=== PATIENT | female | born 1970 | race Caucasian/White ===

== ENCOUNTER 2017-08-30 11:15 | Emergency (ER) | payer OTHER ==
[~2017-08-30] VITALS: Ht 167.6 cm; Wt 57.0 kg
[~2017-08-30 11:15] MED LIST: AMBI10TA PO; VICOTAB4 PO; Z.0.BCPILL PO
[2017-08-30 11:17] VITALS: BP 128/89; PULSE 93; RESP 18; TEMP 97.5; O2SAT 100
--- NOTE | 2017-08-30 11:30 | PD ---
HPI Chief Complaint: Abdominal Pain Time Seen by Provider: 11:23 Travel History International Travel<30 days: No Contact w/Intl Traveler<30days: No Traveled to known affect area: No History of Present Illness HPI Patient comes in complaining of gradual onset of lower abdominal pain, crampy, about 3-5 out of 10, nonradiating. Onset was approximately 4 days ago on Saturday , there was some an associated nausea but no acute vomiting or diarrhea on that day. As time went on the pain continued to get worse presently it is 7 out of 10, and as of yesterday associated with loose stools. Patient also stated that she has had a fever of 101-102 throughout the week. Last meal today was morning toast, and has not had anything else to eat or drink. Patient presented to an urgent care, who referred the patient to the emergency department as she was too complicated to treat at the urgent care . No known drug allergy Past medical history significant for breast augmentation chronic neck pain PFSH Past Medical History Arthritis: Yes (NECK) Anxiety: Yes Cancer: No Cardiovascular Problems: No Diminished Hearing: No Endocrine: No Genitourinary: No Immune Disorder: No Musculoskeletal: Yes (CHRONIC NECK AND BACK PAIN) Neurologic: No Psychiatric: No Reproductive: No Respiratory: No Immunizations Current: No ?: Unknown Past Surgical History Section: Yes Gynecologic Surgery: Yes (BREAST AUGMENTATION) Other Surgery: Yes (BREAST AUGMENTATION) Social History Alcohol Use: Yes ("SOCIALLY") Tobacco Use: No Substance Use: No Allergies-Medications (Allergen,Severity, Reaction): Coded Allergies: No Known Allergies (Verified Adverse Reaction, Unknown, 08/30/17) Reported Meds & Prescriptions Reported Meds & Active Scripts Active Reported Estradiol 1 Mg Tab 1 Mg PO DAILY Provera (Medroxyprogesterone Acetate) 2.5 Mg Tab 2.5 Mg PO DAILY Start day 16 Review of Systems General / Constitutional: No: Fever Eyes: No: Visual changes HENT: No: Headaches Cardiovascular: No: Chest Pain or Discomfort Respiratory: No: Shortness of Breath Gastrointestinal: Positive: Nausea, Abdominal Pain Genitourinary: No: Dysuria Musculoskeletal: No: Pain Skin: No Rash Neurologic: No: Weakness Psychiatric: No: Depression Endocrine: No: Polydipsia Hematologic/Lymphatic: No: Easy Bruising Physical Exam Narrative GENERAL: SKIN: Warm and dry. HEAD: Atraumatic. Normocephalic. EYES: Pupils equal and round. No scleral icterus. No injection or drainage. ENT: No nasal bleeding or discharge. Mucous membranes pink and moist. NECK: Trachea midline. No JVD. CARDIOVASCULAR: Regular rate and rhythm. RESPIRATORY: No accessory muscle use. Clear to auscultation. Breath sounds equal bilaterally. GASTROINTESTINAL: Abdomen is tender to percussion on the lower quadrants including right ,suprapubic and left lower quadrant. MUSCULOSKELETAL: Extremities without clubbing, cyanosis, or edema. No obvious deformities. NEUROLOGICAL: Awake and alert. No obvious cranial nerve deficits. Motor grossly within normal limits. Five out of 5 muscle strength in the arms and legs. Normal speech. PSYCHIATRIC: Appropriate mood and affect; insight and judgment normal. Data Data Last Documented VS Vital Signs Date Time Temp Pulse Resp B/P (MAP) Pulse Ox O2 Delivery O2 Flow Rate FiO2 08/30/17 12:34 20 08/30/17 12:31 98 08/30/17 11:17 97.5 93 128/89 (102) Orders Orders Complete Blood Count With Diff (08/30/17 11:39) Comprehensive Metabolic Panel (08/30/17 11:39) Lipase (08/30/17 11:39) Prothrombin Time / Inr (Pt) (08/30/17 11:39) Act Partial Throm Time (Ptt) (08/30/17 11:39) Urinalysis - C+S If Indicated (08/30/17 11:39) Ct Abd/Pel W Iv Contrast(Rout) (08/30/17 11:39) Iv Access Insert/Monitor (08/30/17 11:39) Ecg Monitoring (08/30/17 11:39) Oximetry (08/30/17 11:39) NPO (08/30/17 11:39) Morphine Inj (Morphine Inj) (08/30/17 11:45) Ondansetron Inj (Zofran Inj) (08/30/17 11:45) Sodium Chlor 0.9% 1000 Ml Inj (Ns 1000 M (08/30/17 11:39) Electrocardiogram (08/30/17 11:39) Ed Urine Pregnancytest Poc (08/30/17 11:39) Oral Contrast - Adult (08/30/17 11:46) Urine Culture (08/30/17 11:45) Diatrizoate Liq ( Gastroromy Liq) (08/30/17 12:15) Levofloxacin 750 Mg Premix Inj (Levaquin (08/30/17 13:30) Iohexol 350 Inj (Omnipaque 350 Inj) (08/30/17 14:01) Labs Laboratory Tests Test 08/30/17 11:45 08/30/17 11:50 Urine Collection Type CLEAN CATCH Urine Color YELLOW Urine Turbidity CLEAR Urine pH 6.5 Urine Specific [place] LESS/EQUAL 1.005 Urine Protein NEG mg/dL Urine Glucose (UA) NEG mg/dL Urine Ketones NEG mg/dL Urine Occult Blood NEG Urine Nitrite NEG Urine Bilirubin NEG Urine Urobilinogen 0.2 MG/DL Urine Leukocyte Esterase SMALL Urine WBC 6-8 /hpf Urine Squamous Epithelial Cells 6-8 /hpf Urine Bacteria MOD /hpf Microscopic Urinalysis Comment CULTURE INDICATED Urine Collection Time 11:45 White Blood Count 3.6 TH/MM3 Red Blood Count 4.60 MIL/MM3 Hemoglobin 14.2 GM/DL Hematocrit 42.1 % Mean Corpuscular Volume 91.6 FL Mean Corpuscular Hemoglobin 30.9 PG Mean Corpuscular Hemoglobin Concent 33.7 % Red Cell Distribution Width 12.4 % Platelet Count 162 TH/MM3 Mean Platelet Volume 7.8 FL Neutrophils (%) (Auto) 47.6 % Lymphocytes (%) (Auto) 37.7 % Monocytes (%) (Auto) 12.2 % Eosinophils (%) (Auto) 1.9 % Basophils (%) (Auto) 0.6 % Neutrophils # (Auto) 1.8 TH/MM3 Lymphocytes # (Auto) 1.3 TH/MM3 Monocytes # (Auto) 0.4 TH/MM3 Eosinophils # (Auto) 0.1 TH/MM3 Basophils # (Auto) 0.0 TH/MM3 CBC Comment DIFF FINAL Differential Comment Prothrombin Time 9.6 SEC Prothromb Time International Ratio 0.9 RATIO Activated Partial Thromboplast Time 26.5 SEC Blood Urea Nitrogen 10 MG/DL Creatinine 0.85 MG/DL Random Glucose 84 MG/DL Total Protein 7.4 GM/DL Albumin 3.4 GM/DL Calcium Level 8.7 MG/DL Alkaline Phosphatase 63 U/L Aspartate Amino Transf (AST/SGOT) 22 U/L Alanine Aminotransferase (ALT/SGPT) 36 U/L Total Bilirubin 0.2 MG/DL Sodium Level 138 MEQ/L Potassium Level 3.7 MEQ/L Chloride Level 104 MEQ/L Carbon Dioxide Level 28.7 MEQ/L Anion Gap 5 MEQ/L Estimat Glomerular Filtration Rate 71 ML/MIN Lipase 158 U/L [facility] Medical Decision Making Medical Screen Exam Complete: Yes Emergency Medical Condition: Yes Medical Record Reviewed: Yes Interpretation(s) Pulse ox: Excellent Pleth wave, 98% on room air, which is within the normal limits of interpretation for pulse ox EKG shows a normal sinus rhythm, 82 bpm, normal intervals, motion artifact baseline, J-point elevation but no ST elevations MO pattern noted Differential Diagnosis related ectopic rupture versus unruptured and versus UTI versus pyelonephritis versus sigmoid diverticulitis versus appendicitis versus colitis versus diverticular abscess or diverticular perforation Narrative Course test is negative CBC shows no leukocytosis, no anemia, no left shift and normal platelet count Coagulation profile is within normal limits CMP shows normal electrolytes, normal kidney liver and pancreatic functions. UA shows the presence of bacteria as well as leukocyte esterase and WBCs consistent with a UTI. CT abdomen and pelvis with IV and p.o. contrast the patient was noted to have no CT evidence of acute appendicitis, small bilateral ovarian cyst measuring 2.6 cm on the left and 2 cm on the right, also mild scoliosis of the lumbar spine. Diagnosis Primary Impression: Ascending cystitis Patient Instructions: General Instructions, Urinary Tract Infection in Women ( DC) Scripts Ondansetron Odt (Zofran Odt) 4 Mg Tab 4 MG SL Q8HR Y for Nausea/Vomiting, #15 TAB 0 Refills Prov: Jony Harding MD 08/30/17 Nitrofurantoin Monohydrate Macrocrystals (Macrobid) 100 Mg Capsule 100 MG PO BID for Infection for 7 Days, #14 CAP 0 Refills Prov: Jony Harding MD 08/30/17 Tramadol (Ultram) 50 Mg Tab 50 MG PO Q8H Y for PAIN, #15 TAB 0 Refills Prov: Jony Harding MD 08/30/17 Disposition: 01 DISCHARGE HOME Condition: Stable Jony Harding MD Aug 30, 2017 11:30
[2017-08-30] MEDS ORDERED: SODIUM CHLOR 0.9% 1000 ML INJ 1,000 ML IV SCH (11:39)
[2017-08-30] MEDS ORDERED: MEDR2.5 PO (11:43)
[2017-08-30] MEDS ORDERED: ESTR1TAB PO (11:43)
[2017-08-30] MEDS ORDERED: MORPHINE SULFATE 4 MG/ML INJ IV PUSH ONE (11:45)
[2017-08-30] MEDS ORDERED: ONDANSETRON HCL 4 MG/2 ML VIAL IVP ONE (11:45)
[2017-08-30 12:00] LABS: AUTOMATED NEUTROPHIL # 1.8 TH/MM3 (1.8-7.7); BASOPHIL % 0.6 % (0.0-2.0); EOSINOPHIL # 0.1 TH/MM3 (0-0.4); EOSINOPHIL % 1.9 % (0.0-4.0); HEMATOCRIT 42.1 % (35.0-46.0); HEMOGLOBIN 14.2 GM/DL (11.6-15.3); LYMPH % 37.7 % (9.0-44.0); LYMPHOCYTE # 1.3 TH/MM3 (1.0-4.8); MEAN CELL VOLUME 91.6 FL (80.0-100.0); MEAN CORPUSCULAR HEMOGLOBIN 30.9 PG (27.0-34.0); MEAN CORPUSCULAR HGB CONC 33.7 % (32.0-36.0); MEAN PLATELET VOLUME 7.8 FL (7.0-11.0); MONO % 12.2 % (0.0-8.0); MONOCYTE # 0.4 TH/MM3 (0-0.9); NEUT % 47.6 % (16.0-70.0); PLATELET COUNT 162 TH/MM3 (150-450); RED CELL DISTRIBUTION WIDTH 12.4 % (11.6-17.2); WHITE BLOOD COUNT 3.6 TH/MM3 (4.0-11.0)
[2017-08-30 12:00] LABS: BILIRUBIN, URINE NEG (NEG); BLOOD, URINE NEG (NEG); GLUCOSE,URINE NEG (NEG); KETONE, URINE NEG (NEG); NITRITE,URINE NEG (NEG); PH, URINE 6.5 (5.0-8.5); URINE COLOR YELLOW (YELLW/STRAW); URINE LEUKOCYTE ESTERASE SMALL (NEG)
[2017-08-30 12:08] LABS: BACTERIA, URINE MOD /hpf
[2017-08-30 12:09] LABS: CHLORIDE 104 MEQ/L (98-107); SODIUM (NA) 138 MEQ/L (136-145)
[2017-08-30 12:12] LABS: CALCIUM 8.7 MG/DL (8.5-10.1)
[2017-08-30 12:13] LABS: ALBUMIN 3.4 GM/DL (3.4-5.0); BICARBONATE 28.7 MEQ/L (21.0-32.0); BLOOD UREA NITROGEN 10 MG/DL (7-18); GLUCOSE,RANDOM 84 MG/DL (74-106); INTERNATIONAL NORMALIZED RATIO 0.9 RATIO; PROTHROMBIN TIME - PATIENT 9.6 SEC (9.8-11.6)
[2017-08-30] MEDS ORDERED: DIATRIZOATE MEGLUM/DIATRIZOATE SOD 9 ML CUP ONE (12:15)
[2017-08-30 12:16] LABS: ALT (GPT) 36 U/L (10-53); AST (GOT) 22 U/L (15-37); CREATININE 0.85 MG/DL (0.50-1.00); GLOMERULAR FILTRATION RATE 71 ML/MIN (>89)
[2017-08-30 12:18] LABS: TOTAL BILIRUBIN ADULT 0.2 MG/DL (0.2-1.0); TOTAL PROTEIN 7.4 GM/DL (6.4-8.2)
[2017-08-30 12:19] LABS: ALKALINE PHOSPHATASE 63 U/L (45-117)
[2017-08-30 12:31] VITALS: O2SAT 98
[2017-08-30 13:00] VITALS: PULSE 88; RESP 18; O2SAT 98
[2017-08-30] MEDS ORDERED: LEVOFLOXACIN 750 MG PREMIX INJ 150 ML IV ONE (13:30)
[2017-08-30] MEDS ORDERED: IOHEXOL 350 MG/ML 10 ML VIAL (for RAD DIAG) IVCONTRAST ONE (14:01)
--- NOTE | 2017-08-30 14:10 | RADRPT ---
EXAM DATE/TIME: 08/30/2017 13:51 [place] COMPARISON: No previous studies available for comparison. INDICATIONS : Right lower quadrant pain, nausea and fever. IV CONTRAST: 85 cc Omnipaque 350 (iohexol) IV ORAL CONTRAST: Prescribed oral contrast ingested. RADIATION DOSE: 5.14 CTDIvol (mGy) MEDICAL HISTORY : None SURGICAL HISTORY : section. ENCOUNTER: Initial ACUITY: 4 - 6 days PAIN SCALE: 7/10 LOCATION: Right lower quadrant TECHNIQUE: Volumetric scanning of the abdomen and pelvis was performed. Using automated exposure control and ad justment of the mA and/or kV according to patient size, radiation dose was kept as low as reasonably achievable to obtain optimal diagnostic quality images. DICOM format image data is available electro nically for review and comparison. FINDINGS: LOWER LUNGS: The visualized lower lungs are clear. LIVER: Homogeneous density without lesion. There is no dilation of the biliary tree. No calcified gallston es. SPLEEN: Normal size without lesion. PANCREAS: Within normal limits. KIDNEYS: Normal in size and shape. There is no mass, stone or hydronephrosis. ADRENAL GLANDS: Within normal limits. VASCULAR: There is no aortic aneurysm. BOWEL/MESENTERY: The stomach, small bowel, and colon demonstrate no acute abnormality. There is no free intraperitone al air or fluid. The appendix is normal. ABDOMINAL WALL: Within normal limits. RETROPERITONEUM: There is no lymphadenopathy. BLADDER: No wall thickening or mass. REPRODUCTIVE: Bilateral ovarian cysts are noted measuring 2.6 cm on the left and 2.0 cm on the right. INGUINAL: There is no lymphadenopathy or hernia. MUSCULOSKELETAL: Mild scoliosis of the lumbar spine is noted. CONCLUSION: 1. No CT evidence of acute appendicitis. 2. Small bilateral ovarian cysts measuring 2.6 cm on the left and 2.0 cm on the right. 3. Mild scoliosis of the lumbar spine. Luis Moreno MD on August 30, 2017 at 14:03 Board Certified Radiologist. This report was verified electronically.
[2017-08-30] MEDS ORDERED: ZOFR4TAB3 SL (14:23)
[2017-08-30] MEDS ORDERED: TRAM50 PO (14:23)
[2017-08-30] MEDS ORDERED: MACR100C2 PO (14:23)
[2017-08-30] MEDS ORDERED: CIPR-9 PO (14:37)
[2017-08-30] MEDS ORDERED: KETOROLAC TROMETHAMINE 30 MG/ML (IVP) VIAL IV PUSH ONE (14:45)
[2017-08-30 15:40] VITALS: BP 103/75; PULSE 81; RESP 16; O2SAT 98
--- NOTE | 2017-08-30 19:35 | EKG ---
Date Performed: 08/30/2017 Time Performed: 11:52:28 PTAGE: 47 years EKG: Sinus rhythm NORMAL ECG NO PREVIOUS TRACING DOCTOR: Andrew Lee Interpretating Date/Time 08/30/2017 19:31:18
== END 2017-08-30 16:23 | disposition home or self-care (01) ==
LOC: PHED 11:15
DX: N30.90 Cystitis, unspecified without hematuria (principal); B96.20 Unspecified Escherichia coli [E. coli] as the cause of diseases classified elsewhere; N83.201 Unspecified ovarian cyst, right side; N83.202 Unspecified ovarian cyst, left side; F41.9 Anxiety disorder, unspecified; Z79.899 Other long term (current) drug therapy
CPT/HCPCS: 74177; 80053; 81001; 83690; 84703; 85025; 85610; 85730; 87077; 87086; 87186; 93005; 96361; 96365; 96366; 96375; 99285; J1885; J1956; J2270; J2405; J7030; Q9963; Q9967